=== PATIENT | female | born 1940 | race Caucasian/White ===

== ENCOUNTER 2017-06-03 10:02 | Emergency (ER) | payer OTHER ==
--- NOTE | 2017-06-03 11:00 | DIAGNOSTIC IMAGING REPORT ---
PROCEDURE: XR ANKLE 3 OR 4 VIEWS - LEFT INDICATION: TRAUMA/INJURY TECHNIQUE: Four views. COMPARISON: None. FINDINGS: Trimalleolar fracture left ankle. IMPRESSION: 1. Trimalleolar fracture left ankle.
--- NOTE | 2017-06-03 11:31 | ED NURSING NOTES ---
Clinical Report - Nurses [place] [address] [place] [address] 06/03/2017 10:05 [id number] Triage time 10:12. Acuity: LEVEL 3. Chief Complaint: INJURY TO LEFT ANKLE. Alert. No acute distress. SEPSIS SCREEN: Sepsis Screen: negative. Negative (no infection suspected/documented). ANDREA COMA SCORE: Andrea Coma Scale: 15- eyes open spontaneously (4); best verbal response- oriented x 4 (5); best motor response- obeys commands (6). --10:26 Jacqueline Pisano R.N. 10:12 06/03/17. BP: 138/70. HR: 72. RR: 20. O2 saturation: 100%. Temp: 97.5 F. Pain level now: 0/10. Additional comments: with movement 10. --10:26 Jacqueline Pisano R.N. 10:12 06/03/17. BP: 138/70. HR: 72. RR: 20. O2 saturation: 100%. Temp: 97.5 F. Pain level now: 0/10. Additional comments: with movement 10. --10:27 Jacqueline Pisano R.N. Weight: 75.7 kg stated. Height/Length: 64 inches Per Patient. BMI: 28.7. --10:25 Jacqueline Pisano R.N. Medications Lutein Vision Blend Oral 25mg day . --10:18 Jacqueline Pisano R.N. Glucosamine Oral 1500mg bid . --10:19 Jacqueline Pisano R.N. Lisinopril Oral 10 mg, daily. --10:19 Jacqueline Pisano R.N. Hctz 25mg day. --10:19 Jacqueline Pisano R.N. Simvastatin Oral 25mg day . --10:20 Jacqueline Pisano R.N. Medication/allergy information source: the patient. --10:26 Jacqueline Pisano R.N. Allergies Codeine. --10:17 Jacqueline Pisano R.N. History Arrived by EMS. Historian: patient. Primary physician (jadyn). This occurred just prior to arrival. Occurred ([facility]). Mechanism of injury: sustained a twisting injury (Stepping down 1 step). She has had trouble walking (- still present). The patient has been unable to stand. 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 PAST MEDICAL HX: Tetanus status: unknown. The patient has had a hysterectomy. SOCIAL HX: Never smoker. No alcohol use or drug use. FALL RISK ASSESSMENT: Fall risk assessment completed. No fall risk identified. NUTRITIONAL RISK ASSESSMENT: The nutritional risk assessment revealed no deficiencies. FUNCTIONAL ASSESSMENT: Functional assessment: no impairments noted. LEARNING NEEDS ASSESSMENT: The learning needs assessment revealed no barriers. --10:26 Jacqueline Pisano R.N. PROBLEMS: Hypertension. Hypercholesterolemia. Diabetes Mellitus. --10:21 Jacqueline Pisano R.N. Macular Degeneration. Eye blind lt. --10:24 Jacqueline Pisano R.N. ADDITIONAL SURGERIES: Appendectomy. Cholecystectomy. Tubal Ligation. --10:24 Jacqueline Pisano R.N. Knee Surgery. --10:30 Jacqueline Pisano R.N. Interventions ID band on patient. To room. --10:26 Jacqueline Pisano R.N. PHYSICAL ASSESSMENT To room via stretcher. Patient gowned. GENERAL / NEURO / PSYCH: Appears in pain and anxious. EXTREMITIES: Limited ROM present. Capillary refill is less than 2 seconds in the extremities. Extremity pulses are within normal limits. Neuro-vascular status intact to the extremity. Left ankle: tenderness and swelling. SKIN: Skin is warm and dry. She has multiple abrasions on the left knee and left foot. --10:28 Jacqueline Pisano R.N. NURSING PROGRESS NOTES Cold pack applied. Extremity elevated. Two patient identifiers checked. Call light placed in reach. Side rails up x 2. Bed placed in lowest position. Brakes of bed on. Patient ready for evaluation. --10:28 Jacqueline Pisano R.N. 10:36 06/03/2017 Site #1 started via IV in the left antecubital space with an 20g angiocath, with aseptic technique and good blood return; one attempt. Blood drawn: rainbow set. Labeled in the presence of the patient and sent to the lab. Saline lock flushed with 10 mL saline. --10:36 Fiona Ribeiro R.N. 10:43 06/03/2017 Dilaudid (HYDROmorphone HCl PF) IVP 0.5 mg given over 2 minute(s) via site #1. Allergies verified, confirmed 5 rights and sedative warning given to the patient. IV patency established. IV site checked: no pain, redness, or swelling. IV flushed thoroughly pre- and post-medication administration. IVP given by RN. --10:43 Fiona Ribeiro R.N. 11:28 06/03/17. Stirrup posterior fiberglass lower extremity splint applied to left ankle by tech. Distal pulses intact, sensation intact and motor within normal limits (Applied with assistance of additional Tech). --11:29 Josh Rodriguez 11:31 06/03/17. Patient fit with new crutches. --11:32 Josh Rodriguez 11:54 06/03/2017 Site #1 removed upon discharge. Catheter intact. Bandaid applied. --12:19 Jacqueline Pisano R.N. 12:01 06/03/2017 TDAP IM 0.5 mL given. (Lot#: [id number], expiration date: 05/04/2019, [employer]: [employer]). Given in the left deltoid. Allergies verified and confirmed 5 rights. Vaccine information statement provided to the patient. --12:16 Jacqueline Pisano R.N. 12:20 06/03/2017 Zofran ODT (Ondansetron) PO 4 mg given. Allergies verified and confirmed 5 rights. --12:30 Jacqueline Pisano R.N. DISPOSITION / DISCHARGE 11:51 06/03/17. BP: 100/62. HR: 59. RR: 18. O2 saturation: 97% on room air. Temp: 97.3 F. --11:52 Janis Guerrero ( Rad films on disc sent with the patient.). --12:17 Jacqueline Pisano R.N. 12:10. Condition at departure: improved. No learning barriers present. Discharge instructions provided and reviewed with the patient and family. Reviewed medication(s) side effects, precautions, dosing and course information. Prescription(s) given to the patient. Reviewed referral to an orthopedic surgeon for followup. Patient verbalized understanding. Written instructions provided in Indian. The patient was discharged home and accompanied by spouse and family. She left the Emergency Department in a wheelchair and (with crutches for home). Family member driving. Medication list reviewed and validated. --13:08 Jacqueline Pisano R.N. Locked/Released at 06/03/2017 13:10 by Jacqueline Pisano R.N.
--- NOTE | 2017-06-03 11:31 | ED ORDER SUMMARY ---
..... Patient: ORTIZ MEDEROS OrderSheet [facility] VisitID: [id number] [place] [address] 76y, F Registration Date/Time: 06/03/2017 ORDER SHEET Weight: 75.7 kg (stated) Allergies: Codeine GENERAL ORDERS: Ankle 3 or 4V Left Urgent (10:13 06/03/2017 Mikala Gunn) (Ack 10:16 KHoerner) (11:08 KHoerner) Splint (LE) (Left) (Sugar [place]) (11:06/03/2017 Mikala Gunn) (11:28 Isidro) Crutches (11:06/03/2017 Mikala Gunn) (11:28 SHOSHANAoefredi) MEDICATION ORDERS: Saline Lock (Solution 0.9 %) 10 mL Syringe (NOW) (10:38 06/03/2017 Cynthia Junior per protocol) (Ack 10:42 Cynthia R.NSylvia) (Cancelled: Other13:10 Ryan R.NSylvia) Tdap IM 0.5 mL (NOW, per protocol) (10:54 06/03/2017 Mikala Gunn) (12:16 Ryan Guerra.N.) Zofran ODT PO 4 mg (NOW) (12:24 06/03/2017 Mikala Gunn) (12:30 Ryan R.N.) IV FLUIDS: Dilaudid IV 0.5 mg (HIGH ALERT MEDICATION, NOW) (10:41 06/03/2017 Cynthia R.NSylvia verbal order read back to Mikala Gunn) (Ack 10:42 Cynthia R.NSylvia) (10:43 Cynthia R.N.) IV Saline Lock (10:44 06/03/2017 Cynthia Junior per protocol) (10:44 Cynthia RSylviaNSylvia) ORDER SHEET NOTES: [Electronically signed by Philipp Lau Dr. (13:07 06/03/2017)] [Electronically signed by Jacqueline Pisano R.N. (13:10 06/03/2017)] [Electronically locked/signed by Jacqueline Pisano R.N. (13:10 06/03/2017)]
--- NOTE | 2017-06-03 11:31 | ED ORDER SUMMARY ---
..... Patient: ORTIZ MEDEROS OrderSheet [facility] VisitID: [id number] [place] [address] 76y, F Registration Date/Time: 06/03/2017 ORDER SHEET Weight: 75.7 kg (stated) Allergies: Codeine GENERAL ORDERS: Ankle 3 or 4V Left Urgent (10:13 06/03/2017 Mikala Gunn) (Ack 10:16 KHoerner) (11:08 KHoerner) Splint (LE) (Left) (Sugar Tong) (11:06/03/2017 Mikala Gunn) (11:28 Isidro) Crutches (11:06/03/2017 Mikala Gunn) (11:28 SHOSHANAoefredi) MEDICATION ORDERS: Saline Lock (Solution 0.9 %) 10 mL Syringe (NOW) (10:38 06/03/2017 Cynthia Junior per protocol) (Ack 10:42 Cynthia R.NSylvia) (Cancelled: Other13:10 Ryan R.NSylvia) Tdap IM 0.5 mL (NOW, per protocol) (10:54 06/03/2017 Mikala Gunn) (12:16 Ryan Guerra.N.) Zofran ODT PO 4 mg (NOW) (12:24 06/03/2017 Mikala Gunn) (12:30 Ryan R.N.) IV FLUIDS: Dilaudid IV 0.5 mg (HIGH ALERT MEDICATION, NOW) (10:41 06/03/2017 Cynthia R.NSylvia verbal order read back to Mikala Gunn) (Ack 10:42 Cynthia R.NSylvia) (10:43 Cynthia R.N.) IV Saline Lock (10:44 06/03/2017 Cynthia Junior per protocol) (10:44 Cynthia RSylviaNSylvia) ORDER SHEET NOTES: [Electronically signed by Philipp Lau Dr. (13:07 06/03/2017)] [Electronically signed by Jacqueline Pisano R.N. (13:10 06/03/2017)] [Electronically locked/signed by Jacqueline Pisano R.N. (13:10 06/03/2017)]
--- NOTE | 2017-06-03 11:31 | ED CLINICAL REPORT ---
Clinical Report - Physicians/Mid Levels [facility] [address] [place] [address] 06/03/2017 10:05 Patient: ORTIZ MEDEROS Time Seen: 10:09; initial patient contact. Arrived- By ambulance. Historian- patient. HISTORY OF PRESENT ILLNESS Chief Complaint: Injury to the left ankle. The injury happened just prior to arrival. Occurred at home. The patient slipped and sustained an inversion injury while stepping down (1 step). Patient is experiencing mild pain. Patient denies injury to the head or neck. Patient also notes injury to the right lower extremity (knee) and (foot); (mild abrasions). REVIEW OF SYSTEMS The patient complains of pain on weight bearing. She has had swelling. No tingling, weakness, numbness, suspected foreign body or skin laceration. All systems otherwise negative, except as recorded above. PAST HISTORY Hypertension. Hypercholesterolemia. Diabetes Mellitus. Macular Degeneration. Eye blind lt. SURGERIES: Appendectomy. Cholecystectomy. Tubal Ligation. Knee Surgery. ADDITIONAL NOTES The nursing notes have been reviewed. PHYSICAL EXAM Appearance: Alert. Oriented X3. No acute distress. Skin: Skin warm and dry. She has multiple small abrasions on the right knee and right foot. No infection present. Extremities: Left ankle: moderate tenderness and swelling and mild deformity consistent with an ankle fracture localized to the lateral malleolus and medial malleolus. Limited ROM secondary to pain (diminished plantar flexion, dorsiflexion, inversion and eversion). Neurovascular intact distally. Foot and ankle exam otherwise negative. Extremities otherwise negative. Neuro, Vascular and Tendons: Vascular status intact. Sensation intact. Motor intact. Gait: Gait not tested due to pain. Neuro: Oriented X 3. No motor deficit. No sensory deficit. LABS, X-RAYS, AND EKG Lt Ankle X-ray: (Trimalleolar Fx). Views: 3 view ankle series. Technique: good. The X-rays were independently viewed by me and interpreted contemporaneously by me. Prior films were not available for comparison. PROGRESS AND PROCEDURES Course of Care: Post splint assessment: N/V intact w/ normal coloration and ROM of toes. Disposition: Discharged home in good and improved condition. Condition: good. CLINICAL IMPRESSION Closed displaced, mildly angulated left trimalleolar fracture. INSTRUCTIONS Apply ice for 20 minutes four times a day until better. Don't apply ice directly to skin. Use crutches until released. Wear fiberglass splint until released. No weight bearing left leg until released. Your Current Medications: CONTINUE TAKING THE FOLLOWING MEDICATIONS: Glucosamine Oral : 1500mg bid. Hctz 25mg day*. Lisinopril Oral : 10 mg daily. Lutein Vision Blend Oral : 25mg day. Simvastatin Oral : 25mg day. Prescription Medications: Zofran (orally disintegrating tablets) 4 mg: take 1 orally every 6 hours as needed for nausea and vomiting. Dispense ten (10). No refill. Substitution is permissible. Demerol 50 mg: take 1 - 2 tablets orally every 6 hours as needed for pain. Dispense twenty (20). No refills. Substitution is permissible. Follow-up: Blood pressure screening was not performed during this visit because the patient has an active diagnosis of hypertension. Follow-up with: [facility], , [address], , [facility] [address] Follow up in about one day. Call for an appointment. (Electronically signed by Philipp Lau Dr. 06/03/2017 13:07)
--- NOTE | 2017-06-03 11:31 | ED CLINICAL REPORT ---
Clinical Report - Physicians/Mid Levels [facility] [address] [place] [address] 06/03/2017 10:05 Patient: ORTIZ MEDEROS Time Seen: 10:09; initial patient contact. Arrived- By ambulance. Historian- patient. HISTORY OF PRESENT ILLNESS Chief Complaint: Injury to the left ankle. The injury happened just prior to arrival. Occurred at home. The patient slipped and sustained an inversion injury while stepping down (1 step). Patient is experiencing mild pain. Patient denies injury to the head or neck. Patient also notes injury to the right lower extremity (knee) and (foot); (mild abrasions). REVIEW OF SYSTEMS The patient complains of pain on weight bearing. She has had swelling. No tingling, weakness, numbness, suspected foreign body or skin laceration. All systems otherwise negative, except as recorded above. PAST HISTORY Hypertension. Hypercholesterolemia. Diabetes Mellitus. Macular Degeneration. Eye blind lt. SURGERIES: Appendectomy. Cholecystectomy. Tubal Ligation. Knee Surgery. ADDITIONAL NOTES The nursing notes have been reviewed. PHYSICAL EXAM Appearance: Alert. Oriented X3. No acute distress. Skin: Skin warm and dry. She has multiple small abrasions on the right knee and right foot. No infection present. Extremities: Left ankle: moderate tenderness and swelling and mild deformity consistent with an ankle fracture localized to the lateral malleolus and medial malleolus. Limited ROM secondary to pain (diminished plantar flexion, dorsiflexion, inversion and eversion). Neurovascular intact distally. Foot and ankle exam otherwise negative. Extremities otherwise negative. Neuro, Vascular and Tendons: Vascular status intact. Sensation intact. Motor intact. Gait: Gait not tested due to pain. Neuro: Oriented X 3. No motor deficit. No sensory deficit. LABS, X-RAYS, AND EKG Lt Ankle X-ray: (Trimalleolar Fx). Views: 3 view ankle series. Technique: good. The X-rays were independently viewed by me and interpreted contemporaneously by me. Prior films were not available for comparison. PROGRESS AND PROCEDURES Course of Care: Post splint assessment: N/V intact w/ normal coloration and ROM of toes. Disposition: Discharged home in good and improved condition. Condition: good. CLINICAL IMPRESSION Closed displaced, mildly angulated left trimalleolar fracture. INSTRUCTIONS Apply ice for 20 minutes four times a day until better. Don't apply ice directly to skin. Use crutches until released. Wear fiberglass splint until released. No weight bearing left leg until released. Your Current Medications: CONTINUE TAKING THE FOLLOWING MEDICATIONS: Glucosamine Oral : 1500mg bid. Hctz 25mg day*. Lisinopril Oral : 10 mg daily. Lutein Vision Blend Oral : 25mg day. Simvastatin Oral : 25mg day. Prescription Medications: Zofran (orally disintegrating tablets) 4 mg: take 1 orally every 6 hours as needed for nausea and vomiting. Dispense ten (10). No refill. Substitution is permissible. Demerol 50 mg: take 1 - 2 tablets orally every 6 hours as needed for pain. Dispense twenty (20). No refills. Substitution is permissible. Follow-up: Blood pressure screening was not performed during this visit because the patient has an active diagnosis of hypertension. Follow-up with: [facility], , [address], , [facility] [address] Follow up in about one day. Call for an appointment. (Electronically signed by Philipp Lau Dr. 06/03/2017 13:07)
--- NOTE | 2017-06-03 11:31 | ED NURSING NOTES ---
Clinical Report - Nurses [place] [address] [place] [address] 06/03/2017 10:05 [id number] TRI[facility] Triage time 10:12. Acuity: LEVEL 3. Chief Complaint: INJURY TO LEFT ANKLE. Alert. No acute distress. SEPSIS SCREEN: Sepsis Screen: negative. Negative (no infection suspected/documented). ANDREA COMA SCORE: Andrea Coma Scale: 15- eyes open spontaneously (4); best verbal response- oriented x 4 (5); best motor response- obeys commands (6). --10:26 Jacqueline Pisano R.N. 10:12 06/03/17. BP: 138/70. HR: 72. RR: 20. O2 saturation: 100%. Temp: 97.5 F. Pain level now: 0/10. Additional comments: with movement 10. --10:26 Jacqueline Pisano R.N. 10:12 06/03/17. BP: 138/70. HR: 72. RR: 20. O2 saturation: 100%. Temp: 97.5 F. Pain level now: 0/10. Additional comments: with movement 10. --10:27 Jacqueline Pisano R.N. Weight: 75.7 kg stated. Height/Length: 64 inches Per Patient. BMI: 28.7. --10:25 Jacqueline Pisano R.N. Medications Lutein Vision Blend Oral 25mg day . --10:18 Jacqueline Pisano R.N. Glucosamine Oral 1500mg bid . --10:19 Jacqueline Pisano R.N. Lisinopril Oral 10 mg, daily. --10:19 Jacqueline Pisano R.N. Hctz 25mg day. --10:19 Jacqueline Pisano R.N. Simvastatin Oral 25mg day . --10:20 Jacqueline Pisano R.N. Medication/allergy information source: the patient. --10:26 Jacqueline Pisano R.N. Allergies Codeine. --10:17 Jacqueline Pisano R.N. History Arrived by EMS. Historian: patient. Primary physician (jadyn). This occurred just prior to arrival. Occurred ([facility]). Mechanism of injury: sustained a twisting injury (Stepping down 1 step). She has had trouble walking (- still present). The patient has been unable to stand. Treatment SENIOR PRODUCT DEVELOPMENT SCIENTIST: Ice. PAST MEDICAL HX: Tetanus status: unknown. The patient has had a hysterectomy. SOCIAL HX: Never smoker. No alcohol use or drug use. FALL RISK ASSESSMENT: Fall risk assessment completed. No fall risk identified. NUTRITIONAL RISK ASSESSMENT: The nutritional risk assessment revealed no deficiencies. FUNCTIONAL ASSESSMENT: Functional assessment: no impairments noted. LEARNING NEEDS ASSESSMENT: The learning needs assessment revealed no barriers. --10:26 Jacqueline Pisano R.N. PROBLEMS: Hypertension. Hypercholesterolemia. Diabetes Mellitus. --10:21 Jacqueline Pisano R.N. Macular Degeneration. Eye blind lt. --10:24 Jacqueline Pisano R.N. ADDITIONAL SURGERIES: Appendectomy. Cholecystectomy. Tubal Ligation. --10:24 Jacqueline Pisano R.N. Knee Surgery. --10:30 Jacqueline Pisano R.N. Interventions ID band on patient. To room. --10:26 Jacqueline Pisano R.N. PHYSICAL ASSESSMENT To room via stretcher. Patient gowned. GENERAL / NEURO / PSYCH: Appears in pain and anxious. EXTREMITIES: Limited ROM present. Capillary refill is less than 2 seconds in the extremities. Extremity pulses are within normal limits. Neuro-vascular status intact to the extremity. Left ankle: tenderness and swelling. SKIN: Skin is warm and dry. She has multiple abrasions on the left knee and left foot. --10:28 Jacqueline Pisano R.N. NURSING PROGRESS NOTES Cold pack applied. Extremity elevated. Two patient identifiers checked. Call light placed in reach. Side rails up x 2. Bed placed in lowest position. Brakes of bed on. Patient ready for evaluation. --10:28 Jacqueline Pisano R.N. 10:36 06/03/2017 Site #1 started via IV in the left antecubital space with an 20g angiocath, with aseptic technique and good blood return; one attempt. Blood drawn: rainbow set. Labeled in the presence of the patient and sent to the lab. Saline lock flushed with 10 mL saline. --10:36 Fiona Ribeiro R.N. 10:43 06/03/2017 Dilaudid (HYDROmorphone HCl PF) IVP 0.5 mg given over 2 minute(s) via site #1. Allergies verified, confirmed 5 rights and sedative warning given to the patient. IV patency established. IV site checked: no pain, redness, or swelling. IV flushed thoroughly pre- and post-medication administration. IVP given by RN. --10:43 Fiona Ribeiro R.N. 11:28 06/03/17. Stirrup posterior fiberglass lower extremity splint applied to left ankle by tech. Distal pulses intact, sensation intact and motor within normal limits (Applied with assistance of additional Tech). --11:29 Josh Rodriguez 11:31 06/03/17. Patient fit with new crutches. --11:32 Josh Rodriguez 11:54 06/03/2017 Site #1 removed upon discharge. Catheter intact. Bandaid applied. --12:19 Jacqueline Pisano R.N. 12:01 06/03/2017 TDAP IM 0.5 mL given. (Lot#: [id number], expiration date: 05/04/2019, [employer]). Given in the left deltoid. Allergies verified and confirmed 5 rights. Vaccine information statement provided to the patient. --12:16 Jacqueline Pisano R.N. 12:20 06/03/2017 Zofran ODT (Ondansetron) PO 4 mg given. Allergies verified and confirmed 5 rights. --12:30 Jacqueline Pisano R.N. DISPOSITION / DISCHARGE 11:51 06/03/17. BP: 100/62. HR: 59. RR: 18. O2 saturation: 97% on room air. Temp: 97.3 F. --11:52 Janis Guerrero ( Rad films on disc sent with the patient.). --12:17 Jacqueline Pisano R.N. 12:10. Condition at departure: improved. No learning barriers present. Discharge instructions provided and reviewed with the patient and family. Reviewed medication(s) side effects, precautions, dosing and course information. Prescription(s) given to the patient. Reviewed referral to an orthopedic surgeon for followup. Patient verbalized understanding. Written instructions provided in Cameroonian. The patient was discharged home and accompanied by spouse and family. She left the Emergency Department in a wheelchair and (with crutches for home). Family member driving. Medication list reviewed and validated. --13:08 Jacqueline Pisano R.N. Locked/Released at 06/03/2017 13:10 by Jacqueline Pisano R.N.
--- NOTE | 2017-06-03 13:10 | ED DISCHARGE INSTRUCTIONS ---
Patient: ORTIZ MEDEROS General Instructions [facility] VisitID: [id number] [address] [place], [place] [id number] 76y, F Registration Date/Time: 06/03/2017 Closed displaced, mildly angulated left trimalleolar fracture. INSTRUCTIONS Apply ice for 20 minutes four times a day until better. Don't apply ice directly to skin. Use crutches until released. Wear fiberglass splint until released. No weight bearing left leg until released. Your Current Medications: CONTINUE TAKING THE FOLLOWING MEDICATIONS: Glucosamine Oral : 1500mg bid. Hctz 25mg day*. Lisinopril Oral : 10 mg daily. Lutein Vision Blend Oral : 25mg day. Simvastatin Oral : 25mg day. Prescription Medications: Zofran (orally disintegrating tablets) 4 mg: take 1 orally every 6 hours as needed for nausea and vomiting. Dispense ten (10). No refill. Substitution is permissible. Demerol 50 mg: take 1 - 2 tablets orally every 6 hours as needed for pain. Dispense twenty (20). No refills. Substitution is permissible. Follow-up: Blood pressure screening was not performed during this visit because the patient has an active diagnosis of hypertension. Follow-up with: [facility], , [address], [place], [id number] Follow up in about one day. Call for an appointment. ADDITIONAL INFORMATION Fracture:Ankle You have a break (fracture) of the ankle. This causes local pain, swelling and sometimes bruising. A fracture is treated with a splint or cast or special boot. It will take about 4-6 weeks for the fracture to heal. Surgery may be needed to fix severe injuries. Home Care: You will be given a splint, cast or boot to prevent movement at the ankle joint. Unless you were told otherwise, use crutches or a walker and do not bear weight on the injured leg until cleared by your doctor to do so. (Crutches and walkers can be rented at many pharmacies and surgical/orthopedic supply stores). Do not put weight on a splint; it will break. Keep your leg elevated to reduce pain and swelling. When sleeping, place a pillow under the injured leg. When sitting, support the injured leg so it is level with your waist. This is very important during the first 48 hours. Apply an ice pack (ice cubes in a plastic bag, wrapped in a towel) over the injured area for 20 minutes every 1-2 hours the first day. You can place the ice pack directly over the splint/cast. Continue with ice packs 3-4 times a day for the next two days, then as needed for the relief of pain and swelling. Keep the cast/splint/boot completely dry at all times. Bathe with your cast/splint/boot out of the water, protected with a large plastic bag, rubber-banded at the top end. If a boot or fiberglass cast/splint gets wet, you can dry it with a hair-dryer. You may use acetaminophen (Tylenol) or ibuprofen (Motrin, Advil) to control pain, unless another pain medicine was prescribed. [ NOTE : If you have chronic liver or kidney disease or ever had a stomach ulcer or GI bleeding, talk with your doctor before using these medicines.] Follow Up with your doctor in one week, or as advised by our staff, to be sure the bone is healing properly. If you were given a splint, it may be changed to a cast at your follow-up visit. [NOTE: A radiologist will review any X-rays that were taken. We will notify you of any new findings that may affect your care.] Get Prompt Medical Attention If Any Of The Following Occur: The plaster cast or splint becomes wet or soft The fiberglass cast or splint remains wet for more than 24 hours Increased tightness or pain under the cast or splint Toes become swollen, cold, blue, numb or tingly Crutch Walking Crutch Adjustment Make sure the crutches you use are adjusted to fit you. When you stand, there should be room to fit 2-3 fingers between the top of the crutch and your armpit. Your elbow should be slightly bent when holding the hand guide changer. Crutch Walking: Place the crutches forward 12" in front of and 6" to the side of your feet. Lean your weight forward as you push down on the handgrips. Your weight should be on your hands and yourstrong leg, not your armpits . Let your body swing through, landing on the strong leg. Advance the crutches forward again. The crutch and the injured leg should move together. Going Up Steps: ("Up with the good") With both crutches on the same step as your feet, push down on the handgrips. Balancing with very light pressure on the weak leg, let your hands support your weight as you raise your strong leg onto the next higher step. Transfer all your weight to your strong leg (still bent) as you move the crutches up to the next step alongside the strong leg. With your weight evenly balanced on the two crutches and your strong leg, straighten your strong knee as you raise the weak leg up to the next step. Going Down Steps: ("Down with the bad") With both crutches on the same step as your feet, push down on the handgrips. With your weight evenly balanced on the two crutches and your strong leg, bend your strong knee as you lower the weak leg down to the next step. Let your strong leg support you (still bent) as you move the crutches down alongside the weak leg. Transfer your weight to your hands, balancing with very light pressure on the weak leg as you lower your strong leg alongside your weak leg. Splint Care, Fiberglass The following will help you care for your splint: It will take up totwo hours for your fiber glass splint to fully harden; therefore, do notapply any pressure on it during that time or else it may break. To prevent swelling under the splint, for thefirst 48 hours: If the splint is on yourarm, keep it in a sling or raised to shoulder level when sitting or standing; rest it on your chest or on a pillow at your side when lying down. If the splint is on yourfoot, keep it propped up above the level of your waist when sitting or lying. Avoid crutch walking as much as possible during this time. Keep the splint/cast dry at all times. Bathe with your splint/cast well out of the water, protected with a large plastic bag, rubber-banded at the top end. If a fiberglass cast or splint gets wet, you can dry it with a hair-dryer. Follow-up care Follow up with your doctor or this facility as advised. When to seek medical care Get prompt medical attention if any of the following occur: Bad odor from the splint or wound-fluid stains the splint The splint cracks or remains wet over 24 hours Increasing tightness or pressure under the splint Fingers or toes become swollen, cold, blue, numb or tingly Increased pain under the splint Ondansetron Oral disintegrating tablet What is this medicine? ONDANSETRON (on SHANICE se olivia) is used to treat nausea and vomiting caused by chemotherapy. It is also used to prevent or treat nausea and vomiting after surgery. How should I use this medicine? These tablets are made to dissolve in the mouth. Do not try to push the tablet through the foil backing. With dry hands, peel away the foil backing and gently remove the tablet. Place the tablet in the mouth and allow it to dissolve, then swallow. While you may take these tablets with water, it is not necessary to do so. Talk to your bus cleaner regarding the use of this medicine in children. Special care may be needed. What side effects may I notice from receiving this medicine? Side effects that you should report to your doctor or health school child care attendant as soon as possible: allergic reactions like skin rash, itching or hives, swelling of the face, lips, or tongue breathing problems dizziness fast or irregular heartbeat feeling faint or lightheaded, falls fever and chills swelling of the hands and feet tightness in the chest Side effects that usually do not require medical attention (report to your doctor or health school child care attendant if they continue or are bothersome): constipation or diarrhea headache What may interact with this medicine? Do not take this medicine with any of the following medications: -apomorphine -cisapride -dofetilide -dronedarone -pimozide -thioridazine -ziprasidone This medicine may also interact with the following medications: -carbamazepine -phenytoin -rifampicin -tramadol -other medicines that prolong the QT interval (cause an abnormal heart rhythm) What if I miss a dose? If you miss a dose, take it as soon as you can. If it is almost time for your next dose, take only that dose. Do not take double or extra doses. Where should I keep my medicine? Keep out of the reach of children. Store between 2 and 30 degrees C (36 and 86 degrees F). Throw away any unused medicine after the expiration date. What should I tell my health care provider before I take this medicine? They need to know if you have any of these conditions: heart disease history of irregular heartbeat liver disease low levels of magnesium or potassium in the blood an unusual or allergic reaction to ondansetron, granisetron, other medicines, foods, dyes, or preservatives or trying to get breast-feeding What should I watch for while using this medicine? Check with your doctor or health school child care attendant as soon as you can if you have any sign of an allergic reaction. Drug Abuse: Prescribed Narcotics& Sedatives Prolonged or overuse of drugs prescribed for pain or sedation may lead to addictionor dependence. Physical dependence leads to drug withdrawal symptoms if you stop taking the drug. With psychological dependence you feel a strong craving for the drug. You may be unable to stop using the drug even though you want to stop. These problems can occur even when the medication is taken at the prescribed dose. Drug addiction places you, your family, and your job at risk. Arrest, conviction and group home sentencing are possible. There is increased danger of accidental injuries to yourself or others while you are under the influence of the drug. from an unintentional overdose of the drug is one of the greatest risks you face. Get Care Admit you have a drug problem to yourself and your family and close friends. Tell your prescribing doctors about this problem so they can help you by adjusting the type and amount of medications that are prescribed in the future. It is best to receive all prescriptions for addictive medications from a single physician who can monitor what is being prescribed. Ask your doctor for a referral for professional help. This could be individual psychotherapy or counseling or a drug treatment program (outpatient or residential). Join a self-help group for drug abuse. Avoid friends who abuse drugs themselves or tempt you to continue abusing drugs. Do not combine pain medicines and sedatives together or with alcohol. Doing so can cause oversedation, coma, and stop your breathing. Follow Up with your doctor or as advised by our staff. Contact one of the resources below for help. National [place] on Alcoholism and Drug Dependencewww.ncadd.org Narcotics Anonymouswww.na.org National Alcohol and Substance Abuse Information Center (for referral to treatment programs) 439.891.6434 www.addictioncareoptions.com Get Prompt Medical Attention if any of the following occur: Excess drowsiness Slow breathing (under 8 breaths per minute) Agitation, anxiety, unable to sleep Unintended weight loss Seizure Chest pain or shortness of breath Fever of 100.4F (38C) or higher, or as directed by your healthcare provider Cough with colored sputum You have been given the following additional information: Fracture, Ankle (General) Crutch Walking Splint Care, Fiberglass Ondansetron Oral disintegrating tablet Drug Abuse: Prescribed Narcotics And Sedatives No weight bearing left leg until released. (Electronically signed by Philipp Lau Dr. 06/03/2017 13:07)
--- NOTE | 2017-06-03 13:10 | ED DISCHARGE INSTRUCTIONS ---
Patient: ORTIZ MEDEROS General Instructions [facility] VisitID: [id number] [address] [place], [place] [id number] 76y, F Registration Date/Time: 06/03/2017 Closed displaced, mildly angulated left trimalleolar fracture. INSTRUCTIONS Apply ice for 20 minutes four times a day until better. Don't apply ice directly to skin. Use crutches until released. Wear fiberglass splint until released. No weight bearing left leg until released. Your Current Medications: CONTINUE TAKING THE FOLLOWING MEDICATIONS: Glucosamine Oral : 1500mg bid. Hctz 25mg day*. Lisinopril Oral : 10 mg daily. Lutein Vision Blend Oral : 25mg day. Simvastatin Oral : 25mg day. Prescription Medications: Zofran (orally disintegrating tablets) 4 mg: take 1 orally every 6 hours as needed for nausea and vomiting. Dispense ten (10). No refill. Substitution is permissible. Demerol 50 mg: take 1 - 2 tablets orally every 6 hours as needed for pain. Dispense twenty (20). No refills. Substitution is permissible. Follow-up: Blood pressure screening was not performed during this visit because the patient has an active diagnosis of hypertension. Follow-up with: [facility], , [address], [place], [id number] Follow up in about one day. Call for an appointment. ADDITIONAL INFORMATION Fracture:Ankle You have a break (fracture) of the ankle. This causes local pain, swelling and sometimes bruising. A fracture is treated with a splint or cast or special boot. It will take about 4-6 weeks for the fracture to heal. Surgery may be needed to fix severe injuries. Home Care: You will be given a splint, cast or boot to prevent movement at the ankle joint. Unless you were told otherwise, use crutches or a walker and do not bear weight on the injured leg until cleared by your doctor to do so. (Crutches and walkers can be rented at many pharmacies and surgical/orthopedic supply stores). Do not put weight on a splint; it will break. Keep your leg elevated to reduce pain and swelling. When sleeping, place a pillow under the injured leg. When sitting, support the injured leg so it is level with your waist. This is very important during the first 48 hours. Apply an ice pack (ice cubes in a plastic bag, wrapped in a towel) over the injured area for 20 minutes every 1-2 hours the first day. You can place the ice pack directly over the splint/cast. Continue with ice packs 3-4 times a day for the next two days, then as needed for the relief of pain and swelling. Keep the cast/splint/boot completely dry at all times. Bathe with your cast/splint/boot out of the water, protected with a large plastic bag, rubber-banded at the top end. If a boot or fiberglass cast/splint gets wet, you can dry it with a hair-dryer. You may use acetaminophen (Tylenol) or ibuprofen (Motrin, Advil) to control pain, unless another pain medicine was prescribed. [ NOTE : If you have chronic liver or kidney disease or ever had a stomach ulcer or GI bleeding, talk with your doctor before using these medicines.] Follow Up with your doctor in one week, or as advised by our staff, to be sure the bone is healing properly. If you were given a splint, it may be changed to a cast at your follow-up visit. [NOTE: A radiologist will review any X-rays that were taken. We will notify you of any new findings that may affect your care.] Get Prompt Medical Attention If Any Of The Following Occur: The plaster cast or splint becomes wet or soft The fiberglass cast or splint remains wet for more than 24 hours Increased tightness or pain under the cast or splint Toes become swollen, cold, blue, numb or tingly Crutch Walking Crutch Adjustment Make sure the crutches you use are adjusted to fit you. When you stand, there should be room to fit 2-3 fingers between the top of the crutch and your armpit. Your elbow should be slightly bent when holding the hand elementary reading specialist. Crutch Walking: Place the crutches forward 12" in front of and 6" to the side of your feet. Lean your weight forward as you push down on the handgrips. Your weight should be on your hands and yourstrong leg, not your armpits . Let your body swing through, landing on the strong leg. Advance the crutches forward again. The crutch and the injured leg should move together. Going Up Steps: ("Up with the good") With both crutches on the same step as your feet, push down on the handgrips. Balancing with very light pressure on the weak leg, let your hands support your weight as you raise your strong leg onto the next higher step. Transfer all your weight to your strong leg (still bent) as you move the crutches up to the next step alongside the strong leg. With your weight evenly balanced on the two crutches and your strong leg, straighten your strong knee as you raise the weak leg up to the next step. Going Down Steps: ("Down with the bad") With both crutches on the same step as your feet, push down on the handgrips. With your weight evenly balanced on the two crutches and your strong leg, bend your strong knee as you lower the weak leg down to the next step. Let your strong leg support you (still bent) as you move the crutches down alongside the weak leg. Transfer your weight to your hands, balancing with very light pressure on the weak leg as you lower your strong leg alongside your weak leg. Splint Care, Fiberglass The following will help you care for your splint: It will take up totwo hours for your fiber glass splint to fully harden; therefore, do notapply any pressure on it during that time or else it may break. To prevent swelling under the splint, for thefirst 48 hours: If the splint is on yourarm, keep it in a sling or raised to shoulder level when sitting or standing; rest it on your chest or on a pillow at your side when lying down. If the splint is on yourfoot, keep it propped up above the level of your waist when sitting or lying. Avoid crutch walking as much as possible during this time. Keep the splint/cast dry at all times. Bathe with your splint/cast well out of the water, protected with a large plastic bag, rubber-banded at the top end. If a fiberglass cast or splint gets wet, you can dry it with a hair-dryer. Follow-up care Follow up with your doctor or this facility as advised. When to seek medical care Get prompt medical attention if any of the following occur: Bad odor from the splint or wound-fluid stains the splint The splint cracks or remains wet over 24 hours Increasing tightness or pressure under the splint Fingers or toes become swollen, cold, blue, numb or tingly Increased pain under the splint Ondansetron Oral disintegrating tablet What is this medicine? ONDANSETRON (on SHANICE se olivia) is used to treat nausea and vomiting caused by chemotherapy. It is also used to prevent or treat nausea and vomiting after surgery. How should I use this medicine? These tablets are made to dissolve in the mouth. Do not try to push the tablet through the foil backing. With dry hands, peel away the foil backing and gently remove the tablet. Place the tablet in the mouth and allow it to dissolve, then swallow. While you may take these tablets with water, it is not necessary to do so. Talk to your electrical assembler regarding the use of this medicine in children. Special care may be needed. What side effects may I notice from receiving this medicine? Side effects that you should report to your doctor or health clinical manager home care as soon as possible: allergic reactions like skin rash, itching or hives, swelling of the face, lips, or tongue breathing problems dizziness fast or irregular heartbeat feeling faint or lightheaded, falls fever and chills swelling of the hands and feet tightness in the chest Side effects that usually do not require medical attention (report to your doctor or health clinical manager home care if they continue or are bothersome): constipation or diarrhea headache What may interact with this medicine? Do not take this medicine with any of the following medications: -apomorphine -cisapride -dofetilide -dronedarone -pimozide -thioridazine -ziprasidone This medicine may also interact with the following medications: -carbamazepine -phenytoin -rifampicin -tramadol -other medicines that prolong the QT interval (cause an abnormal heart rhythm) What if I miss a dose? If you miss a dose, take it as soon as you can. If it is almost time for your next dose, take only that dose. Do not take double or extra doses. Where should I keep my medicine? Keep out of the reach of children. Store between 2 and 30 degrees C (36 and 86 degrees F). Throw away any unused medicine after the expiration date. What should I tell my health care provider before I take this medicine? They need to know if you have any of these conditions: heart disease history of irregular heartbeat liver disease low levels of magnesium or potassium in the blood an unusual or allergic reaction to ondansetron, granisetron, other medicines, foods, dyes, or preservatives or trying to get breast-feeding What should I watch for while using this medicine? Check with your doctor or health clinical manager home care as soon as you can if you have any sign of an allergic reaction. Drug Abuse: Prescribed Narcotics& Sedatives Prolonged or overuse of drugs prescribed for pain or sedation may lead to addictionor dependence. Physical dependence leads to drug withdrawal symptoms if you stop taking the drug. With psychological dependence you feel a strong craving for the drug. You may be unable to stop using the drug even though you want to stop. These problems can occur even when the medication is taken at the prescribed dose. Drug addiction places you, your family, and your job at risk. Arrest, conviction and alf sentencing are possible. There is increased danger of accidental injuries to yourself or others while you are under the influence of the drug. from an unintentional overdose of the drug is one of the greatest risks you face. Get Care Admit you have a drug problem to yourself and your family and close friends. Tell your prescribing doctors about this problem so they can help you by adjusting the type and amount of medications that are prescribed in the future. It is best to receive all prescriptions for addictive medications from a single physician who can monitor what is being prescribed. Ask your doctor for a referral for professional help. This could be individual psychotherapy or counseling or a drug treatment program (outpatient or residential). Join a self-help group for drug abuse. Avoid friends who abuse drugs themselves or tempt you to continue abusing drugs. Do not combine pain medicines and sedatives together or with alcohol. Doing so can cause oversedation, coma, and stop your breathing. Follow Up with your doctor or as advised by our staff. Contact one of the resources below for help. National [place] on Alcoholism and Drug Dependencewww.ncadd.org Narcotics Anonymouswww.na.org National Alcohol and Substance Abuse Information Center (for referral to treatment programs) 961.710.2043 www.addictioncareoptions.com Get Prompt Medical Attention if any of the following occur: Excess drowsiness Slow breathing (under 8 breaths per minute) Agitation, anxiety, unable to sleep Unintended weight loss Seizure Chest pain or shortness of breath Fever of 100.4F (38C) or higher, or as directed by your healthcare provider Cough with colored sputum You have been given the following additional information: Fracture, Ankle (General) Crutch Walking Splint Care, Fiberglass Ondansetron Oral disintegrating tablet Drug Abuse: Prescribed Narcotics And Sedatives No weight bearing left leg until released. (Electronically signed by Philipp Lau Dr. 06/03/2017 13:07)
--- NOTE | 2017-06-03 13:11 | ED MED RECONCILIATION SUMMARY ---
Patient: ORTIZ MEDEROS Medication Reconciliation Report Formerly [facility] VisitID: [id number] [address] [place] [address] 76y, F Registration Date/Time: 06/03/2017 Weight: 75.7 kg Height/Length: 64 in. BMI: 28.7 ALLERGIES: Codeine The patient's Home Medications are listed below: CONTINUE TAKING THE FOLLOWING MEDICATIONS: Glucosamine Oral 1500mg bid Hctz 25mg day Lisinopril Oral 10 mg, daily Lutein Vision Blend Oral 25mg day Simvastatin Oral 25mg day The source(s) of the original Home Medication information: patient The following Medications were given to the patient in the Emergency Department: Dilaudid [IVP] IVP 0.5 mg, administered: 06/03/2017 10:43:00 AM TDAP [IM] IM 0.5 mL, administered: 06/03/2017 12:01:00 PM Zofran ODT [PO] PO 4 mg, administered: 06/03/2017 12:20:00 PM The following Medications were prescribed to the patient: Zofran (orally disintegrating tablets) 4 mg: take 1 orally every 6 hours as needed for nausea and vomiting. Dispense ten (10). No refill. Substitution is permissible. -- Philipp Lau Dr. Demerol 50 mg: take 1 - 2 tablets orally every 6 hours as needed for pain. Dispense twenty (20). No refills. Substitution is permissible. -- Philipp Lau Dr.
--- NOTE | 2017-06-03 13:11 | ED MAR SUMMARY ---
..... Medication Administration Record [facility] [address] [place] [address] Patient: ORTIZ MEDEROS Visit ID: [id number] 76y, F Weight: 75.7 kg Height/Length: 64 in BMI: 28.7 ALLERGIES: Codeine Given 10:43 06/03/2017 Fiona Ribeiro R.N. Medication Administered: DILAUDID [IVP] (HYDROMORPHONE HCL PF), Dose: 0.5 mg IVP over 2 minute(s), Site: #1 left . Medication Ordered: Dilaudid IV 0.5 mg (HIGH ALERT MEDICATION, NOW). Given 12:01 06/03/2017 Jacqueline Pisano R.N. Medication Administered: TDAP [IM], Dose: 0.5 mL IM. Medication Ordered: Tdap IM 0.5 mL (NOW, per protocol). Given 12:20 06/03/2017 Jacqueline Pisano R.N. Medication Administered: ZOFRAN ODT [PO] (ONDANSETRON), Dose: 4 mg PO. Medication Ordered: Zofran ODT PO 4 mg (NOW).
--- NOTE | 2017-06-03 13:11 | ED MAR SUMMARY ---
..... Medication Administration Record [facility] [address] [place] [address] Patient: ORTIZ MEDEROS Visit ID: [id number] 76y, F Weight: 75.7 kg Height/Length: 64 in BMI: 28.7 ALLERGIES: Codeine Given 10:43 06/03/2017 Fiona Ribeiro R.N. Medication Administered: DILAUDID [IVP] (HYDROMORPHONE HCL PF), Dose: 0.5 mg IVP over 2 minute(s), Site: #1 left . Medication Ordered: Dilaudid IV 0.5 mg (HIGH ALERT MEDICATION, NOW). Given 12:01 06/03/2017 Jacqueline Pisano R.N. Medication Administered: TDAP [IM], Dose: 0.5 mL IM. Medication Ordered: Tdap IM 0.5 mL (NOW, per protocol). Given 12:20 06/03/2017 Jacqueline Pisano R.N. Medication Administered: ZOFRAN ODT [PO] (ONDANSETRON), Dose: 4 mg PO. Medication Ordered: Zofran ODT PO 4 mg (NOW).
--- NOTE | 2017-06-03 13:11 | ED MED RECONCILIATION SUMMARY ---
Patient: ORTIZ MEDEROS Medication Reconciliation Report [facility] VisitID: [id number] [address] [place] [address] 76y, F Registration Date/Time: 06/03/2017 Weight: 75.7 kg Height/Length: 64 in. BMI: 28.7 ALLERGIES: Codeine The patient's Home Medications are listed below: CONTINUE TAKING THE FOLLOWING MEDICATIONS: Glucosamine Oral 1500mg bid Hctz 25mg day Lisinopril Oral 10 mg, daily Lutein Vision Blend Oral 25mg day Simvastatin Oral 25mg day The source(s) of the original Home Medication information: patient The following Medications were given to the patient in the Emergency Department: Dilaudid [IVP] IVP 0.5 mg, administered: 06/03/2017 10:43:00 AM TDAP [IM] IM 0.5 mL, administered: 06/03/2017 12:01:00 PM Zofran ODT [PO] PO 4 mg, administered: 06/03/2017 12:20:00 PM The following Medications were prescribed to the patient: Zofran (orally disintegrating tablets) 4 mg: take 1 orally every 6 hours as needed for nausea and vomiting. Dispense ten (10). No refill. Substitution is permissible. -- Philipp Lau Dr. Demerol 50 mg: take 1 - 2 tablets orally every 6 hours as needed for pain. Dispense twenty (20). No refills. Substitution is permissible. -- Philipp Lau Dr.
[2017-06-04] MEDS ORDERED: HYDROCHLOROTHIA25 MG PO (18:17)
[2017-06-04] MEDS ORDERED: LISINOPRIL10 MG PO (18:17)
[2017-06-04] MEDS ORDERED: SIMVASTATIN40 MG PO (18:18)
[2017-06-04] MEDS ORDERED: GLUCOSAMINE CHONDROI PO (18:18)
[2017-06-04] MEDS ORDERED: OMEPRAZOLE40 MG PO (18:19)
[2017-06-04] MEDS ORDERED: VISTARIL25 MG PO (18:20)
[2017-06-04] MEDS ORDERED: DEMEROL50 MG PO (18:20)
[2017-06-04] MEDS ORDERED: METFORMIN HCL500 MG PO (18:21)
== END 2017-06-03 12:10 | disposition home or self-care (01) ==
LOC: ED SRH 10:02
DX: S82.852A Displaced trimalleolar fracture of left lower leg, initial encounter for closed fracture (principal); W10.9XXA Fall (on) (from) unspecified stairs and steps, initial encounter; Y93.89 Activity, other specified; Y92.009 Unspecified place in unspecified non-institutional (private) residence as the place of occurrence of the external cause; Y99.9 Unspecified external cause status; I10 Essential (primary) hypertension; E78.00 Pure hypercholesterolemia, unspecified; E11.9 Type 2 diabetes mellitus without complications; Z79.899 Other long term (current) drug therapy; Z23 Encounter for immunization

== ENCOUNTER 2017-06-03 15:27 | Outpatient (CLI) | payer OTHER ==
--- NOTE | 2017-06-03 16:25 | DIAGNOSTIC IMAGING REPORT ---
PROCEDURE: XR CHEST 2 VIEW INDICATION: PRE SURGERY TECHNIQUE: PA and lateral views. COMPARISON: Chest 06/12/2016 and 11/26/2014 FINDINGS: Normal cardiomediastinal contour. No central vascular congestion. Central arterial prominence. Hyperinflated, hyperlucent lungs with coarse interstitial markings. Horizontal bibasilar atelectasis/scarring IMPRESSION: 1. Stable findings of COPD. 2. Minor bibasilar atelectatic changes.
[2017-06-04] MEDS ORDERED: LISINOPRIL10 MG PO (18:17)
[2017-06-04] MEDS ORDERED: HYDROCHLOROTHIA25 MG PO (18:17)
[2017-06-04] MEDS ORDERED: SIMVASTATIN40 MG PO (18:18)
[2017-06-04] MEDS ORDERED: GLUCOSAMINE CHONDROI PO (18:18)
[2017-06-04] MEDS ORDERED: OMEPRAZOLE40 MG PO (18:19)
[2017-06-04] MEDS ORDERED: VISTARIL25 MG PO (18:20)
[2017-06-04] MEDS ORDERED: DEMEROL50 MG PO (18:20)
[2017-06-04] MEDS ORDERED: METFORMIN HCL500 MG PO (18:21)
== END 2017-06-03 23:00 | disposition home or self-care (01) ==
LOC: RT SRH 15:27
DX: Z01.818 Encounter for other preprocedural examination (principal); Z01.812 Encounter for preprocedural laboratory examination; S82.852A Displaced trimalleolar fracture of left lower leg, initial encounter for closed fracture
CPT/HCPCS: 90004; 90074; 90100; 95059

== ENCOUNTER 2017-06-08 07:33 | Day surgery (SDC) | payer OTHER ==
[2017-06-08] VITALS (9 sets, daily range): BP systolic 91–125; BP diastolic 54–67
[~2017-06-08] VITALS: Ht 162.6 cm; Wt 79.8 kg
[~2017-06-08 07:33] MED LIST: DEMEROL50 MG PO; GLUCOSAMINE CHONDROI PO; HYDROCHLOROTHIA25 MG PO; LISINOPRIL10 MG PO; METFORMIN HCL500 MG PO; OMEPRAZOLE40 MG PO; SIMVASTATIN40 MG PO; VISTARIL25 MG PO
--- NOTE | 2017-06-08 12:29 | Postoperative Progress Note ---
Postop Progress Note Preoperate Diagnosis: Fracture left ankle Postoperative Diagnosis: Same Surgeon: Austin Jorgensen MD Anesthesia: General ETT Findings: Displaced fracture left ankle Procedure: ORIF left ankle Complications? No Condition: Stable EBL: 100cc Blood Administered: 0 Specimen(s) removed? No Grafts or Implants? Yes Graft/Implant type: Plate and screws . (See nursing notes for details of grafts/implants)
--- NOTE | 2017-06-08 13:40 | DIAGNOSTIC IMAGING REPORT ---
PROCEDURE: XR ANKLE 3 OR 4 VIEWS - LEFT INDICATION: SURGERY TECHNIQUE: C-arm fluoroscopy provided to Dr. Jorgensen for ankle ORIF Fluoroscopy time 0:54 minutes (2.7 mGy). COMPARISON: None. FINDINGS: Three AP and lateral C-arm views. The lateral malleolar fracture has been fixed with a side plate and six screws. The medial malleolar fracture has been fixed with three screws IMPRESSION: 1. C-arm fluoroscopy for ankle ORIF performed by Dr. Jorgensen
[2017-06-09 02:14] VITALS: BP 104/51
[2017-06-09 07:28] VITALS: BP 97/50
--- NOTE | 2017-06-09 07:39 | Progress Note ---
Subjective General VSS Afeb WBC normal HGb OK NMV intact and splint is in good condition. Mild pain only. DC home today.
--- NOTE | 2017-06-09 07:39 | Progress Note ---
Subjective General VSS Afeb WBC normal HGb OK NMV intact and splint is in good condition. Mild pain only. DC home today.
[2017-06-09] MEDS ORDERED: DEMEROL50 MG PO (07:43)
[2017-06-09] MEDS ORDERED: ZOFRAN ODT4 MG PO (07:43)
--- NOTE | 2017-06-09 07:43 | Provider's Discharge Care Plan ---
Problem, Goal, Plan Problem List 1. Fracture of left ankle
--- NOTE | 2017-06-09 07:43 | Provider's Discharge Care Plan ---
Problem, Goal, Plan Problem List 1. Fracture of left ankle
== END 2017-06-09 11:50 | disposition home or self-care (01) ==
LOC: OR SRH 07:33 → OB SRH 07:38 → OR SRH 10:00 → ACUTE2 SRH 12:24 → OR SRH 06-09 11:50
PROVIDERS: Orthopaedic Surgery
PROC: 0QSH04Z Reposition Left Tibia with Internal Fixation Device, Open Approach (ICD-10-PCS; principal; 2017-06-08 10:00)
PROC: 0QSK04Z Reposition Left Fibula with Internal Fixation Device, Open Approach (ICD-10-PCS; principal; 2017-06-08 10:00)
DX: S82.852A Displaced trimalleolar fracture of left lower leg, initial encounter for closed fracture (principal); W10.8XXA Fall (on) (from) other stairs and steps, initial encounter; E11.9 Type 2 diabetes mellitus without complications; Z79.84 Long term (current) use of oral hypoglycemic drugs; I10 Essential (primary) hypertension